=== PATIENT | female | born 1990 | race Two or more races ===

== ENCOUNTER 2024-09-28 10:18 | Outpatient (CLI) | payer OTHER | END 2024-09-28 10:29 | disposition home or self-care (01) | LOC: PRENATAL 10:18 | PROVIDERS: ATTEND Obstetrics & Gynecology Maternal & Fetal Medicine | DX: O43.90 Unspecified placental disorder, unspecified trimester (principal); Z36.0 Encounter for antenatal screening for chromosomal anomalies; Z14.8 Genetic carrier of other disease; Z3A.22 22 weeks gestation of pregnancy ==

== ENCOUNTER 2025-01-22 11:49 | Inpatient (IN) | payer OTHER ==
[~2025-01-22] VITALS: Ht 157.5 cm; Wt 3.2 kg
[2025-01-22 12:45] LABS: URINE APPEARANCE Clear; URINE BILIRRUBIN Negative (NEGATIVE); URINE BLOOD Negative; URINE COLOR Yellow; URINE GLUCOSE Negative (NEGATIVE); URINE KETONE Negative (NEGATIVE); URINE LEUKOCYTE Negative; URINE NITRATE Negative; URINE PROTEIN Negative (NEGATIVE); URINE UROBILINOGEN 0.2 E.U./dl
[2025-01-22 12:50] LABS: BASO % 0.2 % (0.1-1.2); EOS # 0.06 (0.04-0.54); EOS % 0.7 % (0.7-7.0); LYMPH # 1.20 (1.18-3.74); LYMPH % 14.3 % (19.3-53.1); MEAN PLATELET VOLUME 10.40 fl (9.4-12.4); MONO # 0.57 (0.24-0.82); MONO % 6.8 % (4.7-12.5); NEUT # 6.49 (1.56-6.13); NEUT % 77.6 % (34.0-71.1); RED CELL DISTRIBUTION WIDTH 13.6 % (11.6-14.4); URINE BACTERIA 87.5 uL (0.0-1933); URINE EPITHELIAL CELLS 18.1 uL (0.0-38.8)
[2025-01-22 12:56] LABS: URINE CAST 0.00 uL (0.0-1.40); URINE RBC 0.5 uL (0.0-20.8); URINE WBC 1.2 uL (0.0-23.2)
[2025-01-22 13:10] LABS: INR < 0.93
[2025-01-23] MEDS ORDERED: PRENATAL + DHA1 EAC1 PO (08:33)
[2025-01-23] MEDS ORDERED: FOLIC ACID0.8 MG PO (08:34)
[2025-01-23 08:35] VITALS: BP 106/70
[2025-01-23 08:41] VITALS: BP 106/70
[2025-01-23] MEDS ORDERED: ERYTHROMYCIN BASE OPHT 1GM EACH TUBE OP ONE (11:43)
[2025-01-23] MEDS ORDERED: OXYTOCIN 10 UNITS/ML VIAL ONE (11:43)
[2025-01-23] MEDS ORDERED: CEFOXITIN SODIUM 2,000 MG VIAL IV ONE (11:53)
[2025-01-23] MEDS ORDERED: KETOROLAC TROMETHAMINE 60 MG VIAL IM STA (19:52)
[2025-01-23] MEDS ORDERED: OXYTOCIN 1,000 ML IV SCH (20:00)
[2025-01-23] MEDS ORDERED: MORPHINE SULFATE 4 MG/ML VIAL IV PRN (20:00)
[2025-01-23] MEDS ORDERED: RINGERS SOLUTION,LACTATED 1,000 ML IV SCH (20:00)
[2025-01-23] MEDS ORDERED: CHLORHEXIDINE GLUCONATE 120 ML BOTTLE TP SCH (20:00)
[2025-01-23 20:49] VITALS: BP 116/71
[2025-01-23 20:51] LABS: BASO % 0.2 % (0.1-1.2); EOS # 0.03 (0.04-0.54); EOS % 0.2 % (0.7-7.0); LYMPH # 1.14 (1.18-3.74); LYMPH % 8.8 % (19.3-53.1); MEAN PLATELET VOLUME 10.70 fl (9.4-12.4); MONO # 0.76 (0.24-0.82); MONO % 5.9 % (4.7-12.5); NEUT # 10.97 (1.56-6.13); NEUT % 84.6 % (34.0-71.1); RED CELL DISTRIBUTION WIDTH 13.6 % (11.6-14.4)
[2025-01-24 00:04] VITALS: BP 97/60
[2025-01-24 08:00] VITALS: BP 100/63
[2025-01-24] MEDS ORDERED: OxyCODONE HCL 5 MG TABLET (ROXICODONE) PO PRN (09:00)
[2025-01-24] MEDS ORDERED: ACETAMINOPHEN 325 MG TABLET PO PRN (09:00)
[2025-01-24 18:08] VITALS: BP 95/60
[2025-01-25] VITALS: BP 99/66
[2025-01-25 08:43] VITALS: BP 103/69
[2025-01-25 18:46] VITALS: BP 100/63
[2025-01-26] VITALS: BP 114/76
[2025-01-26 08:00] VITALS: BP 114/73
[2025-01-26] MEDS ORDERED: NASAL MIST126 ML NASAL (17:47)
[2025-01-26] MEDS ORDERED: PRENATAL + DHA1 EAC1 PO (17:50)
[2025-01-26] MEDS ORDERED: COLACE100 MG PO (17:50)
[2025-01-26] MEDS ORDERED: ACETAMINOPHEN325 M1 PO (17:50)
[2025-01-26] MEDS ORDERED: SIMETHICONE125 M1 PO (17:50)
[2025-01-26] MEDS ORDERED: IBUPROFEN PM S1 EACH PO (17:50)
== END 2025-01-26 18:23 | disposition home or self-care (01) | DRG 788 ==
LOC: O/R 01-23 11:00 → OB/GYN 01-23 11:00
PROVIDERS: ADMIT Obstetrics & Gynecology; ATTEND Obstetrics & Gynecology
PROC: 4A1HXCZ Monitoring of Products of Conception, Cardiac Rate, External Approach (ICD-10-PCS; 2025-01-23)
PROC: 10D00Z1 Extraction of Products of Conception, Low, Open Approach (ICD-10-PCS; principal; 2025-01-23 11:30)
DX: O34.211 Maternal care for low transverse scar from previous cesarean delivery (principal); Z3A.39 39 weeks gestation of pregnancy; Z37.0 Single live birth